=== PATIENT | female | born 1990 | race Caucasian/White ===

== ENCOUNTER 2020-06-28 20:01 | Inpatient (IN) | payer MEDICAID ==
[~2020-06-28] VITALS: Ht 162.6 cm; Wt 77.6 kg
[2020-06-28 22:30] LABS: HEMATOCRIT 32.8 % (36.0-48.0); HEMOGLOBIN 10.6 g/dL (12-16); MCH 26.2 pg (26.0-34.0); MCHC 32.3 g/dL (31.0-37.0); MEAN PLATELET VOLUME 10.7 fL (7.4-10.4); RBC 4.05 10x6/uL (4.00-5.40); RDW 15.3 % (11.5-14.5); WBC 8.7 10x3/uL (4.8-10.8)
[2020-06-28 22:40] LABS: UDS - AMPHET NEGATIVE QUAL (NEGATIVE); UDS - BARB NEGATIVE QUAL (NEGATIVE); UDS - BENZO NEGATIVE QUAL (NEGATIVE); UDS - COCAINE NEGATIVE QUAL (NEGATIVE); UDS - OPIATE NEGATIVE QUAL (NEGATIVE); UDS - PCP NEGATIVE QUAL (NEGATIVE); UDS - THC NEGATIVE QUAL (NEGATIVE)
[2020-06-29 00:56] VITALS: BP 129/80; Ht 162.6 cm; Wt 77.6 kg
--- NOTE | 2020-06-29 05:11 | NUR ---
BIODIESEL PLANT MANAGER HERE TO DRAW CBC/BMP
--- NOTE | 2020-06-29 08:24 | NUR ---
SHIFT ASSESSMENT COMPLETED PER FLOWSHEET. VSS. FUNDUS IS FIRM MIDLINE AT U1, MODERATE RUBRA, NO CLOTS NOTED. REPORTS VOIDING AND PASSING FLATUS WITHOUT ISSUES. VERBALIZES UNDERSTANDING OF PERINEAL CARE USING PERIBOTTLE, TUX, AND DERMAPLAST. EDEMA NOTED ON PERINEUM ICEPACK APPLIED. BED IN LOW POSITION WITH SRUP X2. CALL LIGHT AND PHONE WITHIN REACH. WILL CONTINUE TO MONITOR.
[2020-06-29 08:48] VITALS: BP 124/73
[2020-06-29 16:35] VITALS: BP 113/70
[2020-06-29 19:41] VITALS: BP 124/88
--- NOTE | 2020-06-29 19:41 | NUR ---
PM ASSESSMENT COMPLETED, VSS, AFEBRILE, NAD NOTED, DENIES C/O PAIN OR DISCOMFORT, C/L IN EASY REACH OF PT, SR UP X2, BED IN LOW POSITION, BED BRAKES LOCKED, WILL MONITOR FOR CHANGE IN CONDITION.
--- NOTE | 2020-06-29 20:30 | NUR ---
ROUNDS COMPLETED, NAD NOTED, IN ARMS, BONDING. C/L IN EASY REACH OF PT, DENIES NEEDS AT THIS TIME. WILL MONITOR.
--- NOTE | 2020-06-29 21:35 | NUR ---
ROUNDS COMPLETED, NAD NOTED, DENIES NEEDS/CONCERNS. C/L IN EASY REACH.
--- NOTE | 2020-06-29 22:30 | NUR ---
ROUNDS COMPLETED, PT RESTING WITH EYES CLOSED, LEFT LATERAL POSITION, RESTING NAD IN ROLLING CRIB ADJACENT TO BED. WILL MONITOR.
--- NOTE | 2020-06-30 00:11 | NUR ---
ROUNDS COMPLETED, PT SITTING UP IN BED WITH INFANT IN ARMS, BOTTLEFEEDING INFANT. NAD NOTED, DENIES NEEDS/CONCERNS, CL IN EASY REACH. WILL MONITOR.
--- NOTE | 2020-06-30 02:45 | NUR ---
ROUNDS COMPLETED, NAD NOTED, RESP EVEN AND UNLABORED, C/L IN EASY REACH, WILL MONITOR.
--- NOTE | 2020-06-30 04:45 | NUR ---
ROUNDS COMPLETED, PT LYING LEFT LATERAL POSITION, EYES CLOSED, RESP EVEN AND UNLABORED. C/L IN EASY REACH. WILL MONITOR.
--- NOTE | 2020-06-30 06:25 | NUR ---
ROUNDS COMPLETED, NAD NOTED, DENIES NEEDS/CONCERNS. C/L IN EASY REACH, WILL MONITOR.
[2020-06-30 06:49] LABS: BASOPHILS 0.2 % (0-2); EOSINOPHILS 0.4 % (0-7); HEMATOCRIT 29.5 % (36.0-48.0); HEMOGLOBIN 9.4 g/dL (12-16); IMMATURE GRANULOCYTES 0.4 % (0-5); LYMPHOCYTE ABS# 2.99 10x3/uL (1.18-3.74); LYMPHOCYTES 24.5 % (15-50); MCHC 31.9 g/dL (31.0-37.0); MCV 81.7 fL (80.0-100.0); MONOCYTES 8.7 % (2-11); NEUTROPHIL ABS# 8.05 10x3/uL (1.56-6.13); NEUTROPHILS 65.8 % (40-80); PLATELET COUNT 238 10x3/uL (130-400); RBC 3.61 10x6/uL (4.00-5.40); RDW 15.4 % (11.5-14.5)
[2020-06-30 06:58] LABS: WBC 12.2 10x3/uL (4.8-10.8)
--- NOTE | 2020-06-30 07:02 | NUR ---
THIS RN TO ROOM WITH BONITA GUSMAN FOR BEDSIDE SHIFT REPORTING. PT C/O SOME MILD CRAMPING, RATES PAIN 4/10, REQUESTING IBUPROFEN. WILL NOTIFY MD FOR ORDER. PT STATES SHE WILL ALSO NEED MORE PADS AND PANTIES LATER TODAY. WILL RETURN. AAKASH Pleitez IN REACH.
[2020-06-30 07:33] VITALS: BP 123/73
--- NOTE | 2020-06-30 07:33 | NUR ---
THIS RN TO ROOM FOR PROFILE GRINDER TECHNICIAN AND SHIFT ASSESSMENT. VSS, SHIFT ASSESSMENT COMPLETE, SEE FLOWSHEET FOR DOC. LEFT HAND PIV IN PLACE, SLIGHT OLD BLOOD NOTED BENEATH TEGADERM. WILL REVIEW LABS WITH MD AND REMOVE IF STABLE. PT DENIES HEAVY LOCHIA OR CLOTS DURING THE NIGHT. FF, ML, U/3. SMALL RUBRA LOCHIA, NO CLOTS. PT STATES SHE HAS BEEN VOIDING WITHOUT DIFFICULTY, HAS SUPPLIES FOR PERICARE. NO EDEMA NOTED. PT DENIES NAUSEA OR ANY OTHER S/S. PERIPADS AND PANTIES PROVIDED TO PT PER REQUEST. FRESH ICE WATER GIVEN. PT DENIES FURTHER NEEDS. SRUx2, CL IN REACH.
--- NOTE | 2020-06-30 08:25 | NUR ---
DR VALDOVINOS ON UNIT, LABS REVIEWED, ORDER RECEIVED MAY D/C IV. THIS RN TO ROOM WITH DR VALDOVINOS FOR ROUNDING. DISCUSSING POC AND D/C TO HOME WITH PT. STATES WILL ORDER SIMETHICONE AND MILK OF MAGNESIA FOR PT IF NEEDED. IV REMOVED WITHOUT INCIDENT, CATH TIP INTACT. PRESSURE HELD AND BANDAID APPLIED. TOWELS PROVIDED TO PT FOR SHOWER PER REQUEST, DENIES FURTHER NEEDS. SRUx2, CL IN REACH. PT INSTRUCTED TO CALL FOR ANY NEEDS.
--- NOTE | 2020-06-30 09:29 | NUR ---
PT ADMIN SIMETHICONE AND M.O.M ORDERED BY DR VALDOVINOS. PT DENIES PAIN OR ANY NEEDS AT THIS TIME, FEEDING INFANT. SIG OTHER ON BEDSIDE COUCH. BREAKFAST TRAY ORDERED FOR SIG OTHER PER REQUEST. SRUx2, CL IN REACH.
[2020-06-30] MEDS ORDERED: PERCOCET 5-3251 TAB PO (11:11)
[2020-06-30] MEDS ORDERED: IBUPROFEN800 MG PO (11:12)
--- NOTE | 2020-06-30 11:37 | NUR ---
PT GIVEN DISCHARGE INSTRUCTIONS WELL WRITTEN PRESCRIPTION FOR PAIN CONTROL POST D/C TO HOME PROVIDED BY DR VALDOVINOS. PT VERBALIZES UNDERSTANDING OF INSTRUCTIONS AND DENIES QUESTIONS. PT SIGNS CHART COPIES OF INSTRUCTIONS. INSTRUCTED TO CALL FOR W/C OFF UNIT TO PRIVATE VEHICLE WHEN INFANT BUCKLED IN CARSEAT. UNDERSTANDING VERBALIZED.
--- NOTE | 2020-06-30 11:55 | NUR ---
PT TAKEN OFF UNIT VIA W/C FOR D/C TO HOME WITH . BUCKLED IN CARSEAT CARRIER. SIG OTHER TO DRIVE PT AND HOME.
[2020-07-01 07:15] LABS: RAPID PLASMA REAGIN Non Reactive (Non Reactive)
== END 2020-06-30 11:55 | disposition home or self-care (01) | DRG 807 ==
LOC: D.LDO 20:01 → D.LD 21:32
PROVIDERS: ADMIT Obstetrics & Gynecology; ATTEND Obstetrics & Gynecology
PROC: 10E0XZZ Delivery of Products of Conception, External Approach (ICD-10-PCS; principal; 2020-06-29)
PROC: 0HQ9XZZ Repair Perineum Skin, External Approach (ICD-10-PCS; 2020-06-29)
DX: O32.6XX0 Maternal care for compound presentation, not applicable or unspecified (principal); Z37.0 Single live birth; Z3A.39 39 weeks gestation of pregnancy; O70.0 First degree perineal laceration during delivery